=== PATIENT | female | born 2000 | race American Indian/Alaskan Native ===

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

== ENCOUNTER 2019-02-09 19:20 | Inpatient (IN) | payer MEDICAID | END 2019-02-12 15:10 | disposition home or self-care (01) | LOC: C.EROB 19:20 → C.4D 20:13 → C.4M 02-10 12:50 ==